=== PATIENT | male | born 1980 | race African-American/Black ===

== ENCOUNTER 2020-01-11 20:06 | Emergency (ER) | payer OTHER ==
[~2020-01-11] VITALS: Ht 185.4 cm; Wt 94.0 kg
--- NOTE | 2020-01-11 20:16 | PHYS DOC ---
Past History Additional Past Medical Histor: bladder cancer Additional Past Surgical Histo: cystectomy with neobladder Adult General Chief Complaint Chief Complaint: NEAR SYCOPE HPI HPI Patient is a 39-year-old male who presents to the emergency department for evaluation. He states was released from long-term earlier today, and was transferred to a custodial house. EMS states he was found in the bathroom foaming at the mouth, his level of consciousness was unclear. The patient thinks he may have blacked out, but EMS reported no postictal symptoms, per bystanders or EMS. The patient's only complaint is pain in his right hand, he does have some soft tissue swelling there, but he denies that he was in a fight. He denies any substance abuse, or seizure history. He states that he has been awake for 3 days straight, has not had any sleep. There are no alleviating or exacerbating factors to his symptoms otherwise. Review of Systems Review of Systems Constitutional: Denies fever or chills [] Eyes: Denies change in visual acuity, redness, or eye pain [] HENT: Denies nasal congestion or sore throat [] Respiratory: Denies cough or shortness of breath [] Cardiovascular The patient denies any shortness of breath, chest pain, palpitations, or orthopnea[] GI: Denies abdominal pain, nausea, vomiting, bloody stools or diarrhea [] : Denies dysuria or hematuria. Patient self catheterizes, [] Musculoskeletal: Denies back pain or joint pain [] Integument: Denies rash or skin lesions [] Neurologic: Denies headache, focal weakness or sensory changes [] Endocrine: Denies polyuria or polydipsia [] All other systems were reviewed and found to be within normal limits, except as documented in this note. Physical Exam Physical Exam PHYSICAL EXAM: CONSTITUTIONAL: Well developed, well nourished HEAD: normocephalic, atraumatic EENT: PERRL, EOMI. Conjunctivae normal color, sclerae non-icteric; moist mucous membranes. NECK: Supple, non-tender; no meningismus. LUNGS: Lungs CTA, breathing even and unlabored. Normal air movement. HEART: Regular rate and rhythm, no murmur CHEST: No deformity; non-tender ABDOMEN: The abdomen is soft, and non-tender, no masses or bruits. EXTREM: Normal ROM; no deformity, no calf tenderness. Normal pulses palpable in all extremities. There is no pedal edema. There is mild soft tissue swelling, a subacute appearing abrasion, and mild tenderness to palpation diffusely along the dorsum of the right hand. There are no other abnormalities noted in the extremities. SKIN: No rash; no diaphoresis NEURO: Alert; normal speech and cognition; CN's grossly intact; strength grossly intact without focal deficit. BACK: No CVA TTP. Current Patient Data Lab Results Laboratory Tests Test 01/11/20 20:15 01/11/20 20:35 Urine Collection Type Unknown Urine Color Yellow Urine Clarity Cloudy Urine pH 6.5 Urine Specific [place] 1.025 Urine Protein >100 mg/dl Urine Glucose (UA) Neg mg/dL Urine Ketones (Stick) Neg mg/dL Urine Blood Neg Urine Nitrite Neg Urine Bilirubin Neg Urine Urobilinogen Dipstick 0.2 mg/dL Urine Leukocyte Esterase Neg Urine RBC 0 /HPF Urine WBC 11-20 /HPF Urine Squamous Epithelial Cells Occ /LPF Urine Bacteria Few /HPF Urine Mucus Mod /LPF Urine Opiates Screen Neg Urine Methadone Screen Neg Urine Barbiturates Neg Urine Phencyclidine Screen Neg Urine Amphetamine/Methamphetamine Pos Urine Benzodiazepines Screen Neg Urine Cocaine Screen Neg Urine Cannabinoids Screen Neg Urine Ethyl Alcohol Neg White Blood Count 9.0 x10^3/uL Red Blood Count 4.49 x10^6/uL Hemoglobin 13.2 g/dL Hematocrit 40.1 % Mean Corpuscular Volume 89 fL Mean Corpuscular Hemoglobin 30 pg Mean Corpuscular Hemoglobin Concent 33 g/dL Red Cell Distribution Width 13.8 % Platelet Count 227 x10^3/uL Neutrophils (%) (Auto) 74 % Lymphocytes (%) (Auto) 18 % Monocytes (%) (Auto) 6 % Eosinophils (%) (Auto) 1 % Basophils (%) (Auto) 1 % Neutrophils # (Auto) 6.7 x10^3uL Lymphocytes # (Auto) 1.7 x10^3/uL Monocytes # (Auto) 0.6 x10^3/uL Eosinophils # (Auto) 0.1 x10^3/uL Basophils # (Auto) 0.1 x10^3/uL Sodium Level 143 mmol/L Potassium Level 4.2 mmol/L Chloride Level 107 mmol/L Carbon Dioxide Level 24 mmol/L Anion Gap 12 Blood Urea Nitrogen 21 mg/dL Creatinine 1.2 mg/dL Estimated GFR (Cockcroft-Gault) 66.7 BUN/Creatinine Ratio 18 Glucose Level 166 mg/dL Calcium Level 8.5 mg/dL Total Bilirubin 0.5 mg/dL Aspartate Amino Transf (AST/SGOT) 25 U/L Alanine Aminotransferase (ALT/SGPT) 27 U/L Alkaline Phosphatase 111 U/L Troponin I Quantitative 0.017 ng/mL Total Protein 7.0 g/dL Albumin 3.6 g/dL Albumin/Globulin Ratio 1.1 Current Medications Medications (Trade) Dose Ordered Sig/Kareen Route PRN Reason Start Time Stop Time Status Last Admin Dose Admin Ibuprofen (Motrin) 600 mg 1X ONCE PO 01/11/20 21:15 01/11/20 21:16 DC 01/11/20 21:13 EKG EKG Normal sinus rhythm with a normal rate, normal axis, normal intervals, there are no acute ischemic ST/T changes.[] Radiology/Procedures Radiology/Procedures PROCEDURE: CT HEAD WO CONTRAST CT HEAD INDICATION: Seizure COMPARISON: None Available. Exposure: One or more of the following individualized dose reduction techniques were utilized for this examination: 1. Automated exposure control 2. Adjustment of the mA and/or kV according to patient size 3. Use of iterative reconstruction technique TECHNIQUE: 5 mm contiguous axial images were obtained from the skull base to the vertex in both bone and soft tissue algorithm. FINDINGS: No abnormal attenuation within the brain parenchyma. No evidence of acute intracranial hemorrhage. No extra-axial fluid collections. No mass effect or midline shift. Ventricular size is appropriate. Basal cisterns are patent. No fractures identified.Schmitz-white differentiation is preserved.Globes and orbits are within normal limits. Paranasal sinuses and mastoid air cells are clear. IMPRESSION: No acute intracranial findings. [] PROCEDURE: HAND RIGHT 3V Right hand 3 views. HISTORY: Pain 3 views were taken of the right hand. There is not evidence of an acute fracture or osseous abnormality. There are small cysts of the distal ulna. IMPRESSION: 1. Degenerative changes with small cysts in the distal ulna. 2. No fracture or bony destructive process or other acute osseous abnormality. Course & Med Decision Making Course & Med Decision Making Pertinent Labs and Imaging studies reviewed. (See chart for details) []The patient's condition remains stable. I discussed test results with the patient, specifically the proteinuria, as well as the need for close outpatient follow-up, as well as neurology follow-up. I'm not convinced that the patient had a seizure, but even if he did, this could be a provoked seizure, due to being awake for 3 days, as well as amphetamine use (something the patient denie s). It is well. Regardless, this was a first seizure does not require antiepileptics at this time even if this was an epileptic episode. Discussed importance of close outpatient neurology and PCP follow-up and return precautions Dragon Disclaimer Dragon Disclaimer This electronic medical record was generated, in whole or in part, using a voice recognition dictation system. Departure Departure: Impression: Primary Impression: Transient alteration of awareness Additional Impressions: Urinary tract infection Proteinuria Disposition: HOME, SELF-CARE Condition: STABLE Referrals: TODD RICHTER MD, AHMED M MD Patient Instructions: Proteinuria, Seizure, Adult, Syncope, Urinary Tract Infection Scripts Sulfamethoxazole/Trimethoprim (BACTRIM 400-80 MG TABLET) 1 Each Tablet 1 TAB PO BID for - for 7 Days, #14 TAB 0 Refills Prov: MAURILIO PIMENTEL MD 01/11/20 Problem Qualifiers MAURILIO PIMENTEL MD Jan 11, 2020 20:16
--- NOTE | 2020-01-11 21:03 | RAD ---
CT HEAD INDICATION: Seizure COMPARISON: None Available. Exposure: One or more of the following individualized dose reduction techniques were utilized for this examination: 1. Automated exposure control 2. Adjustment of the mA and/or kV according to patient size 3. Use of iterative reconstruction technique TECHNIQUE: 5 mm contiguous axial images were obtained from the skull base to the vertex in both bone and soft tissue algorithm. FINDINGS: No abnormal attenuation within the brain parenchyma. No evidence of acute intracranial hemorrhage. No extra-axial fluid collections. No mass effect or midline shift. Ventricular size is appropriate. Basal cisterns are patent. No fractures identified.Schmitz-white differentiation is preserved.Globes and orbits are within normal limits. Paranasal sinuses and mastoid air cells are clear. IMPRESSION: No acute intracranial findings. Electronically signed by: Gary Kumari MD (01/11/2020 9:00 PM) [id number]
--- NOTE | 2020-01-11 21:05 | RAD ---
Right hand 3 views. HISTORY: Pain 3 views were taken of the right hand. There is not evidence of an acute fracture or osseous abnormality. There are small cysts of the distal ulna. IMPRESSION: 1. Degenerative changes with small cysts in the distal ulna. 2. No fracture or bony destructive process or other acute osseous abnormality. Electronically signed by: Brandon Whitmore MD (01/11/2020 9:02 PM) [id number]
[2020-01-11 21:07] VITALS: BP 127/70
[2020-01-11 21:09] LABS: BACTERIA,URINE FEW /HPF (0-FEW); BILIRUBIN,URINE NEG (NEG); CLARITY,URINE CLOUDY; COLOR,URINE YELLOW; GLUCOSE,URINE NEG (NEG); NITRITE,URINE NEG (NEG); RBC,URINE 0 /HPF (0-2); SQUAMOUS EPITHELIAL CELL,UR OCC /LPF; UROBILINOGEN,URINE 0.2 mg/dL (0.2 mg/dL)
[2020-01-11 21:12] LABS: BASO # 0.1 x10^3/uL (0.0-0.2); BASO % 1 % (0-3); EOS # 0.1 x10^3/uL (0.0-0.7); EOS % 1 % (0-3); HEMATOCRIT 40.1 % (39.0-53.0); HEMOGLOBIN 13.2 g/dL (13.0-17.5); LYMPH # 1.7 x10^3/uL (1.0-4.8); LYMPH % 18 % (24-48); MEAN CORPUSCULAR HEMOGLOBIN 30 pg (25-35); MEAN CORPUSCULAR HGB CONC 33 g/dL (31-37); MEAN CORPUSCULAR VOLUME 89 fL (79-100); MONO # 0.6 x10^3/uL (0.0-1.1); MONO % 6 % (0-9); NEUT # 6.7 x10^3uL (1.8-7.7); NEUT % 74 % (31-73); PLATELET COUNT 227 x10^3/uL (140-400); RED BLOOD COUNT 4.49 x10^6/uL (4.30-5.70); RED CELL DISTRIBUTION WIDTH 13.8 % (11.5-14.5)
[2020-01-11 21:15] LABS: CALCIUM 8.5 mg/dL (8.5-10.1); CREATININE 1.2 mg/dL (0.7-1.3); GFR 66.7; POTASSIUM 4.2 mmol/L (3.5-5.1)
[2020-01-11] MEDS ORDERED: IBUPROFEN 600 MG TABLET. PO ONE (21:15)
[2020-01-11 21:17] LABS: BARBITURATES NEG (NEG); BENZODIAZEPINES NEG (NEG); CANNABINOIDS NEG (NEG); COCAINE NEG (NEG); METHADONE NEG (NEG); OPIATES NEG (NEG); PHENCYCLIDINE NEG (NEG)
[2020-01-11 21:20] LABS: ALBUMIN 3.6 g/dL (3.4-5.0); ALBUMIN/GLOBULIN RATIO 1.1 (1.0-1.7); TOTAL BILIRUBIN 0.5 mg/dL (0.2-1.0)
[2020-01-11 21:27] LABS: AMPHETAMINE/METHAMPHETAMINE POS (NEG)
[2020-01-11] MEDS ORDERED: SULF1TAB23 PO (21:35)
--- NOTE | 2020-01-11 23:42 | EKG ---
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
== END 2020-01-11 21:40 | disposition home or self-care (01) ==
LOC: ER 20:06
DX: R40.4 Transient alteration of awareness (principal); N39.0 Urinary tract infection, site not specified; R80.9 Proteinuria, unspecified; M79.641 Pain in right hand; R22.31 Localized swelling, mass and lump, right upper limb
CPT/HCPCS: 36415; 70450; 73130; 80053; 80307; 81001; 84484; 85025; 87086; 93005; 99285